=== PATIENT | male | born 1990 | race Caucasian/White ===

== ENCOUNTER → 2018-11-23 | Outpatient (CLI) | payer OTHER ==
--- NOTE | 2018-11-23 16:14 | Diagnostic Imaging Report ---
Abdominal and pelvic ultrasound. History: Evaluation of right groin and. Clinical pain. Comparison: None available. Discussion: Transverse and longitudinal images of the abdomen and pelvis were obtained in the region of indicated pain. No evidence of hernia, mass, or fluid collection. IMPRESSION: Negative limited abdominal and pelvic ultrasound. No evidence of hernia. Signed by: Aron Palencia on 11/23/2018 4:11 PM
== END ==
LOC: US 15:02
PROVIDERS: ATTEND Family Medicine
DX: R10.31 Right lower quadrant pain (principal)
CPT/HCPCS: 76705; 76856